=== PATIENT | male | born 1990 | race Caucasian/White ===

== ENCOUNTER 2022-04-07 17:32 | Emergency (ER) | payer MEDICAID, OTHER ==
[~2022-04-07] VITALS: Ht 185.5 cm; Wt 86.0 kg
[2022-04-07] MEDS ORDERED: ACETAMINOPHEN 500 MG TAB (TYLENOL) PO STA (17:48)
--- NOTE | 2022-04-07 17:55 | ED Head Injury ---
General Chief Complaint: Head/Cervical Problems Stated Complaint: HEAD INJURY Source: patient History of Present Illness Date Seen by Provider: Apr 07, 2022 Time Seen by Provider: 17:36 Initial Comments 31-year-old male presenting with complaints of head injury from around 2 PM. He works for an [employer] company and had started to slip when they were sitting a peter. As he slipped to the metal rail from the peter hit him on the left frontal scalp area. He denies losing consciousness. He states when he got hit it did make him drop the rest of the way to his knees. He was already starting to slip but the force of being hit made him go ahead and go down to his knees. He has had dizziness with occasional blurred vision, nausea, trouble focusing and concentrating since this happened. He has had no blood or fluid draining from his nose or ears. He states has been more than 5 years for his last tetanus shot. He has a history of QT prolongation and is not to take any medicines that could exacerbate this. He is supposed to be taking metoprolol but states he does not have insurance or primary care provider currently so he has not taken that for few years. He states that his employer is going to be covering the expenses for this injury. Occurred: this afternoon Severity: moderate Location: frontal (left) Method of Injury: direct blow Loss of Consciousness: no loss of consciousness Associated Systoms: No Chest Pain, No Cough, No Diaphoresis, No Fever/Chills; Headaches; No Loss of Appetite, No Malaise; Nausea/Vomiting (nausea but no emesis); No Rash, No Seizure, No Shortness of Air, No Syncope, No Weakness Allergies and Home Medications Allergies Coded Allergies: azithromycin (Verified Allergy, Unknown, prolonged QT interval, 04/07/22) Patient Home Medication List Home Medication List Reviewed: Yes Review of Systems Review of Systems Constitutional: No chills; dizziness; No fever Eyes: Blurred Vision (intermittently since hit in head); Denies Photophobia, Denies Vision Changes Ears, Nose, Mouth, Throat: denies ear pain, denies ear discharge, denies nose pain, denies nose discharge, denies epistaxis Respiratory: No cough, No short of breath Cardiovascular: No chest pain Gastrointestinal: nausea; No vomiting Genitourinary: No dysuria Musculoskeletal: no symptoms reported Skin: see HPI, other (abrasion to left frontal scalp with swelling and tenderness) Psychiatric/Neurological: Headache; Denies Numbness, Denies Tingling, Denies Tonic Clonic Seizures, Denies Weakness Endocrine: No Symptoms Reported Hematologic/Lymphatic: Denies Blood Clots, Denies Easy Bleeding, Denies Easy Bruising Past Nplgdpj-Lmcrig-Pudjhf Hx Past Medical History Surgery/Hospitalization HX: QT prolongation Surgeries: No Physical Exam Vital Signs Vital Signs - First Documented 04/07/22 17:40 Temp 36.7 Pulse 87 Resp 16 B/P (MAP) 134/81 (98) Pulse Ox 99 O2 Delivery Room Air Capillary Refill : Height, Weight, BMI Height: '" Weight: lbs. oz. kg; BMI Method: General Appearance: WD/WN HEENT: PERRL/EOMI, normal ENT inspection, TMs normal, pharynx normal; No photophobia; other (Negative boswell sign, negative raccoon sign, no CSF otorrhea, no CSF rhinorrhea, no hemotympanum) Neck: non-tender, full range of motion, supple, normal inspection Cardiovascular: normal peripheral pulses, regular rate, rhythm Respiratory: chest non-tender, lungs clear, normal breath sounds Psychiatric: alert, oriented x 3 Crainal Nerves: normal hearing, normal speech, PERRL Coordination/Gait: normal gait Motor/Sensory: no motor deficit, no sensory deficit Skin: warm/dry, other (Abrasion to the left frontal scalp with mild erythema and swelling) [place] Coma Score Best Eye Response: (4) Open Spontaneously Best Verbal Response: (5) Oriented Best Motor Response: (6) Obeys Commands Frank Total: 15 Images 1 - Superficial abrasion to the left frontal scalp with mild tenderness, redness, swelling Progress/Results/Core Measures Results/Orders My Orders Orders - KHUSHI REYES MD Dipht,Pertuss(Acell),Tet Adult (Boostrix (04/07/22 18:00) Acetaminophen Tablet (Tylenol Tablet) (04/07/22 17:48) Ice: Apply To Affected Area (04/07/22 17:48) Ct Head Wo (04/07/22 17:48) Wound Dressing-Ed (04/07/22 17:48) Medications Given in ED Current Medications Medications Dose Ordered Sig/Nathaniel Route Start Time Stop Time Status Last Admin Dose Admin Diphtheria/ Tetanus/Acell Pertussis 0.5 ml ONCE ONCE IM 1/17/23 18:00 04/07/22 18:01 DC 04/07/22 18:33 0.5 ML Vital Signs/I&O 04/07/22 04/07/22 17:40 18:34 Temp 36.7 36.7 Pulse 87 79 Resp 16 16 B/P (MAP) 134/81 (98) 118/68 Pulse Ox 99 99 O2 Delivery Room Air Room Air Progress Progress Note #1: Progress Note Potential life-threatening conditions of intracranial hemorrhage, skull fr acture, concussion, facial fracture. Will update his tetanus booster since its been more than 5 years. The wound was cleaned and did not show a deep wound or anything requiring stapling. No physical signs of intracranial hemorrhage or skull fracture as he has no boswell sign, raccoon sign, CSF or blood draining from his ears or nose. Ordered ice pack to help with pain as well as a dose of Tylenol. The wound was cleaned with surgical scrub soap and sterile water. Based on the [place] CT head injury rule he would not need to have a CT scan, however since he continues to have dizziness with trouble concentrating and disorientation will obtain CT imaging to look for fracture or bleeding. The [place] Head CT Rule suggests a head CT is not necessary for this patient (sensitivity 83-100% for all intracranial traumatic findings, sensitivity 100% for findings requiring neurosurgical intervention). Progress Note #2: Time: 18:14 Progress Note On my initial interpretation and personal review of his CT scan of his head I did not see any obvious skull fracture or intracranial hemorrhage. Awaiting radiology report and overread. Progress Note #3: Time: 18:24 Progress Note I reviewed the radiologist report which did not show any signs of acute fracture or intracranial hemorrhage. Will discharge to home and encourage patient to keep the abrasion clean with soap and water. May use offs-exk-qsgmihz antibiotic ointment to help keep it from getting infected. Use acetaminophen and/or ibuprofen to help with pain. Ice 15 to 20 minutes every few hours as needed for pain and swelling. Try to stay well-hydrated and get plenty of rest. May return to work as long as he is not having any vomiting. Given information about clinic so he can follow-up for continued symptoms. Diagnostic Imaging Diagonstic Imaging: CT Plain Films/CT/US/NM/MRI: head Comments [facility], [place] NAME: GORDY STARKS [facility] REC#: [id number] PT STATUS: REG ER : 1990 PHYSICIAN: KHUSHI REYES MD ADMIT DATE: 04/07/22/ER FS Draft Date of Exam:04/07/22 CT HEAD WO PROCEDURE: CT head without contrast. TECHNIQUE: Multiple contiguous axial images were obtained through the brain without the use of intravenous contrast. Auto Exposure Controls were utilized during the CT exam to meet ALARA standards for radiation dose reduction. INDICATION: Left frontal head injury. No prior studies are available for comparison. Ventricles and sulci are within normal limits. No sulcal effacement or midline shift is identified. No acute intra-axial or extra-axial hemorrhage is detected. Cisterns are patent. Visualized paranasal sinuses are clear. IMPRESSION: No acute intracranial process is detected. Dictated on workstation # [id number] Dict: 04/07/22 1802 Trans: 04/07/22 1807 [facility] [id number] Interpreted by: JAIRO CAVAZOS MD Electronically signed by: Reviewed: Reviewed by Mt Departure Impression Primary Impression: Abrasion of scalp, initial encounter Additional Impressions: Closed head injury without loss of consciousness Qualified Codes: S09.90XA - Unspecified injury of head, initial encounter Concussion without loss of consciousness, initial encounter Disposition: 01 HOME, SELF-CARE Condition: Stable Departure-Patient Inst. Decision time for Depature: 18:25 Referrals: NO,LOCAL PHYSICIAN (PCP) Primary Care Physician [facility] Patient Instructions: Minor Head Injury, Adult ED, Concussion, Adult ED, Abrasions ED Add. Discharge Instructions: Keep abrasion clean with soap and water. May apply mkko-jtc-vvkpxuk antibiotic ointment to help prevent infection. Try to keep it covered especially if it might get dirty. Stay well-hydrated and get plenty of rest. Continue to use Acetaminophen and/or Ibuprofen over the counter to help with p ain and inflammation. If having continued troubles and not improving follow up with clinic for further evaluation. You could call [facility] clinic at [phone] for arranging follow up and further care if needed. All discharge instructions reviewed with patient and/or family. Voiced understanding. Work/School Note: Work Release Form Date Seen in the Emergency Department: Apr 07, 2022 Return to Work: Apr 08, 2022 Restrictions: Return-No Vomiting(24hrs) KHUSHI REYES MD Apr 07, 2022 17:55
[2022-04-07] MEDS ORDERED: TETANUS,DIPTH,PERTUSS P/F (BOOSTRIX) 0.5 ML VIAL IM ONE (18:00)
--- NOTE | 2022-04-07 18:07 | Diagnostic Imaging Report ---
PROCEDURE: CT head without contrast. TECHNIQUE: Multiple contiguous axial images were obtained through the brain without the use of intravenous contrast. Auto Exposure Controls were utilized during the CT exam to meet ALARA standards for radiation dose reduction. INDICATION: Left frontal head injury. No prior studies are available for comparison. Ventricles and sulci are within normal limits. No sulcal effacement or midline shift is identified. No acute intra-axial or extra-axial hemorrhage is detected. Cisterns are patent. Visualized paranasal sinuses are clear. IMPRESSION: No acute intracranial process is detected. Dictated by: Dictated on workstation # [id number]
[2022-04-07 18:34] VITALS: BP 118/68
== END 2022-04-07 18:34 | disposition home or self-care (01) ==
LOC: EDUNIT# 17:32 → ER FS 17:35
DX: S06.0X0A Concussion without loss of consciousness, initial encounter (principal); S00.01XA Abrasion of scalp, initial encounter; Z23 Encounter for immunization; Z28.310 Unvaccinated for COVID-19; W01.198A Fall on same level from slipping, tripping and stumbling with subsequent striking against other object, initial encounter; Y92.59 Other trade areas as the place of occurrence of the external cause; Y99.0 Civilian activity done for income or pay
CPT/HCPCS: 70450; 90715